=== PATIENT | male | born 1980 | race Caucasian/White ===

== ENCOUNTER 2020-10-05 03:55 | Emergency (ER) | payer MEDICAID, SELFPAY ==
[2020-10-05 04:03] VITALS: BP 144/85; PULSE 113; RESP 20; TEMP 37.1; O2SAT 97; BMI 35.6
[2020-10-05 04:22] VITALS: BP 144/85; PULSE 113; RESP 20; TEMP 37.1; O2SAT 97
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
--- NOTE | 2020-10-05 04:59 | PC.NURSE ---
Patient just got assessed by the provider, possible discharge, patient denied SI/HI/AVH, will continue to monitor.
[2020-10-05 05:30] LABS: Amphetamine Screen Urine Not Detected (Not Detect); Barbiturates, Urine Not Detected (Not Detect); Benzodiazepines Screen Urine POSITIVE (Not Detect); Cannabinoid Screen Urine POSITIVE (Not Detect); Cocaine Screen Urine POSITIVE (Not Detect); Opiate Screen Urine POSITIVE (Not Detect); Phencyclidine Screen Urine Not Detected (Not Detect)
--- NOTE | 2020-10-05 07:18 | PC.NURSE ---
Report received from AMAYA Magaña. Pt resting, resp unlabored.
[2020-10-05 08:00] VITALS: RESP 20
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
[2020-10-05 09:48] VITALS: BP 119/79; PULSE 84; RESP 20; TEMP 36.6; O2SAT 99
--- NOTE | 2020-10-05 09:48 | PC.NURSE ---
Pt awake, CARE team in to see. Pt reports he is feeling much better. Affect even.
[2020-10-05 09:56] VITALS: RESP 18
--- NOTE | 2020-10-05 10:24 | PC.NURSE ---
Peer transition coach in to evaluate.
--- NOTE | 2020-10-05 10:55 | PC.NURSE ---
Pt seen by CARE team and by coach mechanic- will be going to clinic for treatment. N April, will discharge for appointment this morning.
--- NOTE | 2020-10-05 11:20 | MHC.RECOVSUP ---
? Reason for consult:Continuity of care o Current location: [facility] o Identified substance use concern: Heroin - Withdrawal - Seeking ATS (detox) - Support ? Intervention: o Bed search started o MAT started or to be started o Community resources provided o Harm reduction discussion ? Plan: o Referral to CCC o Bed search in progress to o Patient to follow up with [facility] after discharge ? Additional information:Patient was subsequently discharged and walked to the [facility].
== END 2020-10-05 11:06 | disposition home or self-care (01) ==
PROVIDERS: Emergency Provider Student in an Organized Health Care Education/Training Program
DX: F11.10 Opioid abuse, uncomplicated (principal); F19.10 Other psychoactive substance abuse, uncomplicated
CPT/HCPCS: 80305; 80307; 99202; 99284

== ENCOUNTER 2020-10-05 13:17 | Outpatient (REF) | payer MEDICAID, SELFPAY ==
[2020-10-10 05:38] LABS: Codeine, Ur NEGATIVE ng/mL (<50); Hydrocodone, Ur NEGATIVE ng/mL (<50); Hydromorphone, Ur NEGATIVE ng/mL (<50); Morphine, Ur 404 ng/mL (<50); Norhydrocodone, Ur NEGATIVE ng/mL (<50); Noroxycodone, Ur NEGATIVE ng/mL (<50); Oxycodone, Ur NEGATIVE ng/mL (<50); Oxymorphone, Ur NEGATIVE ng/mL (<50)
== END 2020-10-05 13:18 | disposition home or self-care (01) ==
LOC: HO.LNP 13:17
PROVIDERS: Visit Provider Nurse Practitioner Psychiatric/Mental Health
DX: Z02.83 Encounter for blood-alcohol and blood-drug test (principal)
CPT/HCPCS: 80354; 80364; 80365

== ENCOUNTER 2021-01-22 20:12 | Emergency (ER) | payer MEDICAID, SELFPAY ==
--- NOTE | ~2021-01-22 | XR_ITS ---
EXAMINATION: XR SHOULDER, RIGHT CLINICAL INFORMATION: Pain COMPARISON: None TECHNIQUE: AP external rotation, Grashey, scapular Y, and axillary views of the right shoulder. FINDINGS: The bones and soft tissues are normal. No fracture. Glenohumeral and acromioclavicular alignment is anatomic with normal joint space. No abnormal soft tissue calcifications. XR/XR shoulder RT min 2V IMPRESSION: Normal right shoulder.
[2021-01-22 20:17] VITALS: BP 138/97; BP 150/92; PULSE 100; PULSE 114; RESP 24; TEMP 36.7; O2SAT 98; BMI 33.9
[2021-01-22 20:25] VITALS: BP 138/97; PULSE 100; RESP 14; TEMP 36.7; O2SAT 98
[2021-01-22 20:28] VITALS: BP 138/97; PULSE 114; RESP 24; TEMP 36.7; O2SAT 98
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
[2021-01-22 22:18] VITALS: BP 129/76; PULSE 85; RESP 18; TEMP 36.7; O2SAT 96
[2021-01-22 22:21] VITALS: BP 131/77; PULSE 85; RESP 15; O2SAT 98
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
[2021-01-22] MEDS: Naloxone HCl Nasal TAKE HOME 4 MG SPRAY NOSTRILALT (22:53)
--- NOTE | 2021-01-23 07:49 | ECG_ITS ---
Test Reason : OD Blood Pressure : / mmHG Vent. Rate : 098 BPM Atrial Rate : 098 BPM P-R Int : 156 ms QRS Dur : 090 ms QT Int : 358 ms P-R-T Axes : 060 057 037 degrees QTc Int : 457 ms Normal sinus rhythm Normal ECG No previous ECGs available Referred By: Re Frances Electronically Signed By:ROBYN CONCEPCION MD
== END 2021-01-22 23:15 | disposition home or self-care (01) ==
PROVIDERS: Emergency Provider Student in an Organized Health Care Education/Training Program
DX: T40.1X1A Poisoning by heroin, accidental (unintentional), initial encounter (principal); Y92.9 Unspecified place or not applicable; M25.511 Pain in right shoulder; F11.90 Opioid use, unspecified, uncomplicated; F14.90 Cocaine use, unspecified, uncomplicated; Z71.51 Drug abuse counseling and surveillance of drug abuser
CPT/HCPCS: 73030; 93005; 99285